=== PATIENT | male | born 1960 | race Caucasian/White ===

== ENCOUNTER 2016-10-07 17:09 | Inpatient (IN) | payer OTHER ==
[~2016-10-07] VITALS: Ht 182.9 cm; Wt 90.7 kg
[~2016-10-07 17:09] MED LIST: LACTATED RINGER'S 1000 ML INJ 2,000 ML IV ONE; ONDANSETRON HCL 4 MG/2 ML VIAL IV PUSH ONE; PROPOFOL 200 MG/20 ML AMP IV ONE
[2016-10-07 17:20] VITALS: BP 153/101; PULSE 85; RESP 20; TEMP 98.3; O2SAT 95
[2016-10-07] MEDS ORDERED: htn meds (17:26)
[2016-10-07] MEDS ORDERED: TETANUS/DIPHTHERIA TOXOID ADULT 0.5 ML VIAL IM ONE (17:30)
[2016-10-07] MEDS ORDERED: SODIUM CHLORIDE 0.9% FLUSH 5 ML FLUSH IVF PRN ×2 (17:30→21:45)
[2016-10-07] MEDS ORDERED: MORPHINE SULFATE 4 MG/ML INJ IV PUSH ONE (17:30)
[2016-10-07] MEDS ORDERED: ceFAZolin 2 GM PREMIX 50 ML IV ONE (17:30)
[2016-10-07] MEDS ORDERED: ONDANSETRON HCL 4 MG/2 ML VIAL IVP ONE (17:30)
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
[2016-10-07 17:46] VITALS: O2SAT 95
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
[2016-10-07 18:40] LABS: AUTOMATED NEUTROPHIL # 7.6 TH/MM3 (1.8-7.7); BASOPHIL # 0.1 TH/MM3 (0-0.2); BASOPHIL % 0.9 % (0.0-2.0); EOSINOPHIL # 0.2 TH/MM3 (0-0.4); EOSINOPHIL % 1.9 % (0.0-4.0); HEMATOCRIT 44.5 % (39.0-51.0); HEMO FLAGS DIFF FINAL; LYMPH % 24.4 % (9.0-44.0); LYMPHOCYTE # 2.8 TH/MM3 (1.0-4.8); MEAN CELL VOLUME 97.8 FL (80.0-100.0); MEAN CORPUSCULAR HEMOGLOBIN 32.7 PG (27.0-34.0); MEAN CORPUSCULAR HGB CONC 33.4 % (32.0-36.0); MONO % 7.1 % (0.0-8.0); NEUT % 65.7 % (16.0-70.0); PLATELET COUNT 182 TH/MM3 (150-450); RED BLOOD COUNT 4.55 MIL/MM3 (4.50-5.90); WHITE BLOOD COUNT 11.5 TH/MM3 (4.0-11.0)
[2016-10-07] MEDS ORDERED: HYDROmorphone HCL PF 1 MG/ML VIAL IV PUSH ONE (18:45)
[2016-10-07 18:50] LABS: APTT (PATIENT) 23.8 SEC (24.3-30.1); PROTHROMBIN TIME - PATIENT 10.6 SEC (9.8-11.6)
[2016-10-07 19:02] LABS: BICARBONATE 24.1 MEQ/L (21.0-32.0); POTASSIUM 3.9 MEQ/L (3.5-5.1)
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
[2016-10-07] MEDS ORDERED: SODIUM CHLOR 0.9% 1000 ML INJ 1,000 ML IV SCH (19:23)
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
[2016-10-07] MEDS ORDERED: ACETAMINOPHEN 325 MG TAB PO PRN (19:30)
[2016-10-07] MEDS ORDERED: SODIUM CHLORIDE 0.9% FLUSH 5 ML FLUSH FLUSH PRN (19:30)
[2016-10-07] MEDS ORDERED: ONDANSETRON HCL 4 MG/2 ML VIAL IVP PRN ×2 (19:30→21:45)
[2016-10-07] MEDS ORDERED: MORPHINE SULFATE 4 MG/ML INJ IV PRN (19:30)
[2016-10-07] MEDS ORDERED: BISACODYL 10 MG SUPP PR PRN (19:30)
[2016-10-07] MEDS ORDERED: ACETAMINOPHEN/HYDROcodone 325 MG/5 MG TAB PO PRN (19:30)
[2016-10-07] MEDS ORDERED: GENTAMICIN SULFATE 80 MG/2 ML VIAL ONE (19:37)
[2016-10-07 19:57] VITALS: BP 148/89
[2016-10-07] MEDS ORDERED: VANCOMYCIN HCL 1000 MG VIAL ONE (20:22)
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
[2016-10-07] MEDS ORDERED: VANCOMYCIN HCL 1000 MG VIAL OTHER ONE (20:29)
[2016-10-07] MEDS ORDERED: SODIUM CHLORIDE 0.9% FLUSH 5 ML FLUSH FLUSH SCH (21:00)
[2016-10-07] MEDS ORDERED: MISCELLANEOUS NURSING INFORMATION XX PRN (21:45)
[2016-10-07] MEDS ORDERED: diphenhydrAMINE HCL 25 MG CAP PO PRN (21:45)
[2016-10-07] MEDS ORDERED: MISCELLANEOUS PHARMACY INFORMATION XX ONE (21:45)
[2016-10-07] MEDS ORDERED: MAGNESIUM HYDROXIDE SUSP 30 ML CUP PO PRN (21:45)
[2016-10-07] MEDS ORDERED: NALOXONE HCL 0.4 MG/ML AMP IV PRN (21:45)
[2016-10-07] MEDS ORDERED: MORPHINE SULFATE 4 MG/ML INJ IV PUSH PRN (21:45)
[2016-10-07] MEDS ORDERED: Post-op Orders (for Pharmacy) MISC XX ONE (21:45)
[2016-10-07] MEDS ORDERED: ACETAMINOPHEN/HYDROcodone 325 MG/10 MG TAB PO PRN (21:45)
--- NOTE | 2016-10-07 21:45 | PD.OP ---
cc: Louis Addison MD Operative Report Date of Surgery: Oct 07, 2016 Preoperative Diagnosis: Left lower leg open tibia/fibular fracture. Postoperative Diagnosis: Left lower leg grade 2 open tibia/fibular fracture. Procedure: Left lower leg irrigation of skin through bone. Left lower leg treatment of open tibia fracture with intramedullary nail Implants: Synthes, tibial nail, 10 mm x 360 mm. Surgeon: Louis Addison Well Logging Captain Mud Analysis(s): ELKE Payton The surgical procedure was assisted by my Advanced Registered Nurse Practitioner. My GIS PROGRAMMER presence was necessary throughout this case for the manipulation and positioning of the surgical extremity. My GIS PROGRAMMER was assisting me throughout the duration of this procedure. The skill set of an Advance Registered Nurse Practitioner was medically necessary to complete this procedure. During the surgical case, the surgical instrument technician was working at the back table and the Advance Registered Nurse Practitioner was directly assisting me. Operation and Findings: Estimated blood loss: 250 cc. The patient was brought back to the operative theater. He received intravenous vancomycin and Ancef. After removing the splint we identified a 3 cm laceration in the posterior medial aspect of the leg which was complex in nature. This was consistent with an open fracture. No visualize gross contamination was noted. The left lower extremity was prepped and draped in the usual sterile fashion after general anesthesia had been administered. We started with debridement by extending the laceration proximal and distal. We debrided small areas of devitalized fat. There was small areas of devitalized muscle which were debrided as well. Skin was cleaned. We debrided the edge of the tibia. We then irrigated with 3 L of saline. We exchanged instruments and drapes. We then proceeded with the intramedullary nail. We made standard incision proximal to the patella and made in-line incision through the quadriceps tendon. We placed a protection sheath into the joint down to the proximal tibia is was kept in place the entire time to protect the patella. We used fluoroscopic imaging to obtain a good starting point and drilled proximally. A ball-tipped guidewire was placed down past the fracture to the ankle. We sequentially reamed up to a size 11. We placed the 10 mm nail into position. We reduced the fracture so that it was rotationally correct. The fracture did remained highly comminuted. We also made sure the patient did not have any excess valgus or varus. The nail was locked distally with 4 screws using perfect [place] technique. 2 of the screws had excellent purchase. 2 screws had good purchase. We gently back slapped the fracture to line up edges that appeared to be the most appropriate. The nail was secured proximally with 2 transverse screws proximally and one screw had excellent purchase, the other screw had good purchase. We took final fluoroscopic images. We thoroughly irrigated the arthrotomy site and then closed the quadriceps incision with 0 Vicryl interrupted. The remaining wounds were closed with 2-0 Vicryl and forest. We closed the traumatic wound with 2-0 Monocryl and 3-0 nylon. The leg was placed in a splint. Postoperative plan is nonweightbearing, 3 days of intravenous antibiotics for the open fracture, DVT prophylaxis with Lovenox for approximately 10 days followed by aspirin for 30 days. Louis Addison MD Oct 07, 2016 21:45
[2016-10-07] MEDS ORDERED: ASPI325T PO (21:47)
[2016-10-07] MEDS ORDERED: ENOX40P SQ (21:47)
[2016-10-07] MEDS ORDERED: HYDR-3366 PO (21:47)
--- NOTE | 2016-10-07 21:51 | EKG ---
Date Performed: 10/07/2016 Time Performed: 18:53:54 PTAGE: 56 years EKG: Sinus rhythm LEFT ANTERIOR FASCICULAR BLOCK ABNORMAL ECG NO PREVIOUS TRACING DOCTOR: Yoseph Cornejo Interpretating Date/Time 10/07/2016 21:48:57
--- NOTE | 2016-10-07 22:32 | RADRPT ---
EXAM DATE/TIME: 10/07/2016 21:24 [facility] COMPARISON: TIBIA/FIBULA LEFT (AP/LAT), October 07, 2016, 17:43. INDICATIONS : Open reduction. MEDICAL HISTORY : None. SURGICAL HISTORY : None. ENCOUNTER: Subsequent ACUITY: 1 day PAIN SCORE: Non-responsive. LOCATION: Left lateral FINDINGS: Multiple coned down views of the left tibia were obtained using a matrix camera and demonstrate place ment of intramedullary andrea transfixing the comminuted fracture of the distal tibia. The main fracture s are in near-anatomic alignment. There is a mildly comminuted fracture of the distal fibula. CONCLUSION: Status post open reduction internal fixation. Kain Ugalde MD on October 07, 2016 at 22:29 Board Certified Radiologist. This report was verified electronically.
[2016-10-07] MEDS ORDERED: fentaNYL CITRATE 250 MCG/5 ML AMP ONE (22:36)
[2016-10-07] MEDS ORDERED: MORPHINE SULFATE 4 MG/ML INJ ONE (22:37)
[2016-10-07] MEDS ORDERED: *morphine SULFATE 8 MG/ML PERIprocedure ONLY ONE ×2 (22:46→23:30)
[2016-10-07] MEDS ORDERED: *MEPERIDINE 25 MG INJ VIAL PERIprocedural Use ONLY ONE (22:47)
[2016-10-07] MEDS ORDERED: FAMOTIDINE 20 MG/2 ML VIAL ONE (22:51)
[2016-10-07 23:00] LABS: AUTOMATED NEUTROPHIL # 13.1 TH/MM3 (1.8-7.7); BASOPHIL # 0.1 TH/MM3 (0-0.2); BASOPHIL % 0.4 % (0.0-2.0); EOSINOPHIL # 0.1 TH/MM3 (0-0.4); EOSINOPHIL % 0.4 % (0.0-4.0); HEMATOCRIT 40.1 % (39.0-51.0); HEMO FLAGS DIFF FINAL; LYMPH % 9.3 % (9.0-44.0); LYMPHOCYTE # 1.4 TH/MM3 (1.0-4.8); MEAN CELL VOLUME 98.7 FL (80.0-100.0); MEAN CORPUSCULAR HEMOGLOBIN 33.2 PG (27.0-34.0); MEAN CORPUSCULAR HGB CONC 33.7 % (32.0-36.0); MONO % 3.8 % (0.0-8.0); NEUT % 86.1 % (16.0-70.0); PLATELET COUNT 182 TH/MM3 (150-450); RED BLOOD COUNT 4.07 MIL/MM3 (4.50-5.90); WHITE BLOOD COUNT 15.2 TH/MM3 (4.0-11.0)
[2016-10-07] MEDS: DEXT 5%-NACL 0.45% 1000 ML INJ 1,000 ML IV SCH (23:00)
[2016-10-07] MEDS ORDERED: ENALAPRILAT 1.25 MG/ML VIAL ONE (23:19)
[2016-10-08] VITALS (7 sets, daily range): BP systolic 140–167; BP diastolic 77–92; PULSE 61–76; RESP 16–20; TEMP 96–99.2; O2SAT 94–97
[2016-10-08] MEDS ORDERED: VENTAER INH (03:07)
[2016-10-08] MEDS ORDERED: LOSA25TA PO (03:09)
[2016-10-08] MEDS ORDERED: DILT30TA PO (03:09)
[2016-10-08] MEDS ORDERED: RESP: ALBUTEROL 2.5 MG/IPRATROPIUM 0.5 MG NEB (PRN) NEB (03:30)
[2016-10-08] MEDS: RESP: ALBUTEROL 2.5 MG/IPRATROPIUM 0.5 MG NEB (SCH) NEB ×4 (03:46→21:13)
[2016-10-08] MEDS: ACETAMINOPHEN/HYDROcodone 325 MG/10 MG TAB PO PRN ×3 (06:22→19:44)
[2016-10-08 07:32] LABS: AUTOMATED NEUTROPHIL # 13.1 TH/MM3 (1.8-7.7); BASOPHIL # 0.1 TH/MM3 (0-0.2); BASOPHIL % 0.4 % (0.0-2.0); EOSINOPHIL % 0.1 % (0.0-4.0); HEMATOCRIT 39.5 % (39.0-51.0); HEMO FLAGS DIFF FINAL; LYMPH % 7.6 % (9.0-44.0); LYMPHOCYTE # 1.2 TH/MM3 (1.0-4.8); MEAN CELL VOLUME 97.1 FL (80.0-100.0); MEAN CORPUSCULAR HEMOGLOBIN 33.2 PG (27.0-34.0); MEAN CORPUSCULAR HGB CONC 34.2 % (32.0-36.0); NEUT % 85.9 % (16.0-70.0); PLATELET COUNT 178 TH/MM3 (150-450); RED BLOOD COUNT 4.07 MIL/MM3 (4.50-5.90); RED CELL DISTRIBUTION WIDTH 13.1 % (11.6-17.2); WHITE BLOOD COUNT 15.3 TH/MM3 (4.0-11.0)
[2016-10-08 07:59] LABS: ALKALINE PHOSPHATASE 52 U/L (45-117); ALT (GPT) 31 U/L (12-78); ANION GAP 8 MEQ/L (5-15); AST (GOT) 41 U/L (15-37); BICARBONATE 26.1 MEQ/L (21.0-32.0); BLOOD UREA NITROGEN 15 MG/DL (7-18); CHLORIDE 101 MEQ/L (98-107); GLOMERULAR FILTRATION RATE 70 ML/MIN (>89); POTASSIUM 4.4 MEQ/L (3.5-5.1); SODIUM (NA) 135 MEQ/L (136-145); TOTAL BILIRUBIN ADULT 0.5 MG/DL (0.2-1.0)
--- NOTE | 2016-10-08 08:22 | PD.ORT.PN ---
Subjective Subjective Remarks No complaints. Pain fairly well controlled. No new injuries Objective Vitals Vital Signs Date Time Temp Pulse Resp B/P Pulse Ox O2 Delivery O2 Flow Rate FiO2 10/08/16 04:00 98.3 74 16 162/89 96 10/08/16 00:18 96.6 61 16 155/92 97 10/08/16 00:00 97.8 67 12 155/95 98 Nasal Cannula 4 10/07/16 23:45 70 12 151/86 97 Nasal Cannula 4 10/07/16 23:30 98.2 62 12 161/94 99 Nasal Cannula 4 10/07/16 23:15 69 11 163/94 97 Nasal Cannula 4 10/07/16 23:00 74 12 164/102 96 Nasal Cannula 4 10/07/16 22:45 71 12 156/101 99 Nasal Cannula 4 10/07/16 22:30 73 12 158/116 98 Simple Mask 10 10/07/16 22:19 98.0 85 10 158/103 90 Simple Mask 10 10/07/16 19:57 74 148/89 96 10/07/16 17:46 95 10/07/16 17:20 98.3 85 20 153/101 95 I/O 10/07/16 10/07/16 10/07/16 10/08/16 10/08/16 10/08/16 07:00 15:00 23:00 07:00 15:00 23:00 Intake Total 1200 ml 990 ml Output Total 50 ml 700 ml Balance 1150 ml 290 ml Intake Oral 540 ml IV Total 450 ml Other 1200 ml Output Urine Total 700 ml Estimated Blood Loss 50 ml Other 0 ml Result Diagram: 10/08/16 0650 10/08/16 0650 Other Results Laboratory Tests Test 10/07/16 17:10 Prothrombin Time 10.6 SEC (9.8-11.6) Prothromb Time International 1.0 RATIO Ratio Imaging Last 24 hours Impressions Tibia/Fibula X-Ray 10/07/161726 Signed Impressions: Service Date/Time: Friday, October 07, 2016 17:43 - CONCLUSION: Comminuted distal tibial and fibular fractures. Navi Hancock MD Ankle X-Ray 10/07/161726 Signed Impressions: Service Date/Time: Friday, October 07, 2016 17:43 - CONCLUSION: Distal tibia and fibular fractures. Navi Hancock MD Chest X-Ray 10/07/16 1724 Signed Impressions: Service Date/Time: Friday, October 07, 2016 17:50 - CONCLUSION: No acute disease. Nelson Sheets MD Objective Remarks Laboratory stable. X-rays reviewed and look satisfactory. Sensation normal. Mild swelling. Splint intact Assessment & Plan Ortho Post Op Day #: 1 Problem List: Assessment and Plan Open left tibia fracture. Status post ORIF, IM andrea: POD #1. PLAN: Nonweightbearing Lovenox IV antibiotics for 3 days Probable discharge on Monday, after antibiotic are finished No dressing change Vin Huitron MD Oct 08, 2016 08:22
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
[2016-10-08] MEDS ORDERED: MULTIVITAMINS/MINERALS THERAPEUTIC TAB PO SCH (09:00)
[2016-10-08] MEDS ORDERED: WALKER WHEELS/F1 MIS (09:14)
[2016-10-08] MEDS ORDERED: CRUTMIS25 (09:14)
[2016-10-08] MEDS ORDERED: COMMODE 3-IN-11 MIS (09:14)
[2016-10-08] MEDS: DILTIAZEM HCL 30 MG TAB PO SCH (11:34)
[2016-10-08] MEDS: LOSARTAN 25 MG TAB PO SCH (11:34)
[2016-10-08] MEDS: MULTIVITAMIN TAB PO SCH (11:34)
[2016-10-08] MEDS: DOCUSATE SODIUM 50 MG/SENNA 8.6 MG TAB PO SCH ×2 (11:34→21:03)
[2016-10-08] MEDS: DEXT 5%-NACL 0.45% 1000 ML INJ 1,000 ML IV SCH ×2 (11:35→21:04)
[2016-10-08] MEDS: SODIUM CHLORIDE 0.9% FLUSH 5 ML FLUSH IVF SCH ×2 (11:36→21:00)
[2016-10-08] MEDS: NICOTINE 21 MG/24 HR PATCH TD SCH ×2 (16:00→17:05)
[2016-10-08] MEDS: ENOXAPARIN SODIUM 40 MG/0.4 ML SYRINGE SQ SCH (21:02)
[2016-10-09] VITALS: BP 149/87; PULSE 78; RESP 16; TEMP 98.9; O2SAT 96
[2016-10-09] MEDS: ACETAMINOPHEN/HYDROcodone 325 MG/10 MG TAB PO PRN ×3 (02:02→16:50)
[2016-10-09] MEDS: RESP: ALBUTEROL 2.5 MG/IPRATROPIUM 0.5 MG NEB (SCH) NEB ×2 (04:00→21:22)
[2016-10-09] MEDS: DEXT 5%-NACL 0.45% 1000 ML INJ 1,000 ML IV SCH (05:23)
[2016-10-09 06:48] LABS: AUTOMATED NEUTROPHIL # 7.1 TH/MM3 (1.8-7.7); BASOPHIL % 0.4 % (0.0-2.0); EOSINOPHIL # 0.1 TH/MM3 (0-0.4); EOSINOPHIL % 0.8 % (0.0-4.0); HEMATOCRIT 36.4 % (39.0-51.0); HEMO FLAGS DIFF FINAL; LYMPHOCYTE # 2.8 TH/MM3 (1.0-4.8); MEAN CELL VOLUME 96.6 FL (80.0-100.0); MEAN CORPUSCULAR HEMOGLOBIN 33.3 PG (27.0-34.0); MEAN CORPUSCULAR HGB CONC 34.5 % (32.0-36.0); NEUT % 64.8 % (16.0-70.0); PLATELET COUNT 167 TH/MM3 (150-450); RED BLOOD COUNT 3.77 MIL/MM3 (4.50-5.90); RED CELL DISTRIBUTION WIDTH 13.1 % (11.6-17.2)
[2016-10-09 07:03] LABS: BICARBONATE 28.5 MEQ/L (21.0-32.0); POTASSIUM 3.8 MEQ/L (3.5-5.1)
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
[2016-10-09] MEDS: DILTIAZEM HCL 30 MG TAB PO SCH (07:43)
[2016-10-09] MEDS: LOSARTAN 25 MG TAB PO SCH (07:44)
[2016-10-09] MEDS: DOCUSATE SODIUM 50 MG/SENNA 8.6 MG TAB PO SCH ×2 (07:44→20:14)
[2016-10-09] MEDS: MULTIVITAMIN TAB PO SCH (07:51)
[2016-10-09] MEDS: NICOTINE 21 MG/24 HR PATCH TD SCH (07:52)
[2016-10-09 08:00] VITALS: BP 148/81; PULSE 82; RESP 16; TEMP 96; O2SAT 96
[2016-10-09] MEDS: SODIUM CHLORIDE 0.9% FLUSH 5 ML FLUSH IVF SCH ×2 (09:00→20:14)
[2016-10-09] MEDS: REMOVE OLD PATCH TD SCH (09:00)
--- NOTE | 2016-10-09 09:10 | PD.ORT.PN ---
Subjective Subjective Remarks patient sitting up in chair post op pain ready to be discharged but has to await completion of antibiotics due to open fracture Objective Vitals Vital Signs Date Time Temp Pulse Resp B/P Pulse Ox O2 Delivery O2 Flow Rate FiO2 10/09/16 00:00 98.9 78 16 149/87 96 10/08/16 20:01 99.2 76 20 167/89 95 10/08/16 20:00 95 Room Air 10/08/16 16:00 98.6 75 18 146/77 94 10/08/16 15:44 97 21 10/08/16 12:00 99.1 74 18 149/87 97 I/O 10/08/16 10/08/16 10/08/16 10/09/16 10/09/16 10/09/16 07:00 15:00 23:00 07:00 15:00 23:00 Intake Total 1778 ml 960 ml 1294 ml 1229 ml Output Total 700 ml 1800 ml 800 ml 800 ml Balance 1078 ml -840 ml 494 ml 429 ml Intake Oral 540 ml 960 ml 600 ml 480 ml IV Total 1238 ml 694 ml 749 ml Output Urine Total 700 ml 1800 ml 800 ml 800 ml # Bowel Movements 0 Result Diagram: 10/09/16 0554 10/09/16 0554 Imaging Last 24 hours Impressions Tibia/Fibula X-Ray 10/07/161726 Signed Impressions: Service Date/Time: Friday, October 07, 2016 17:43 - CONCLUSION: Comminuted distal tibial and fibular fractures. Navi Hancock MD Ankle X-Ray 10/07/161726 Signed Impressions: Service Date/Time: Friday, October 07, 2016 17:43 - CONCLUSION: Distal tibia and fibular fractures. Navi Hancock MD Chest X-Ray 10/07/161723 Signed Impressions: Service Date/Time: Friday, October 07, 2016 17:50 - CONCLUSION: No acute disease. Nelson Sheets MD Objective Remarks seen by Dr. Vin Huitron sitting up in chair left lower extremity splint in place +NVI +sensation Assessment & Plan Assessment and Plan Open left tibia fracture. Status post ORIF, IM andrea: POD #2 PLAN: Nonweightbearing Lovenox IV antibiotics for 3 days Probable discharge on Monday, after antibiotic are finished No dressing change - patient will be provided disc of x-rays and was advised needs follow up care by orthopedic surgeon in [facility], [place] Carlene Romano Oct 09, 2016 09:10
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
[2016-10-09 09:33] VITALS: O2SAT 93
[2016-10-09] MEDS ORDERED: INFLUENZA VIRUS VACCINE (QUADRIVALENT) 0.5 ML SYR IM ONE (10:00)
[2016-10-09 12:00] VITALS: BP 158/97; PULSE 88; RESP 16; TEMP 98; O2SAT 95
[2016-10-09] MEDS ORDERED: cefTRIAXone INJ 1,000 MG in SODIUM CHLORIDE 0.9% INJ 100 ML IV SCH (12:00)
[2016-10-09 15:30] VITALS: BP 173/98; PULSE 89; RESP 16; TEMP 99.1; O2SAT 95
[2016-10-09] MEDS: ENOXAPARIN SODIUM 40 MG/0.4 ML SYRINGE SQ SCH (20:14)
[2016-10-09 23:10] VITALS: BP 175/91; PULSE 88; RESP 22; TEMP 97.7; O2SAT 92
[2016-10-10] MEDS: ACETAMINOPHEN/HYDROcodone 325 MG/10 MG TAB PO PRN ×3 (00:45→13:28)
[2016-10-10 01:10] VITALS: BP 168/87; PULSE 86; RESP 22; TEMP 98.1; O2SAT 94
[2016-10-10] MEDS: RESP: ALBUTEROL 2.5 MG/IPRATROPIUM 0.5 MG NEB (SCH) NEB (03:19)
[2016-10-10 04:54] LABS: MEAN CELL VOLUME 95.9 FL (80.0-100.0); MEAN CORPUSCULAR HEMOGLOBIN 34.2 PG (27.0-34.0); MEAN CORPUSCULAR HGB CONC 35.7 % (32.0-36.0); PLATELET COUNT 190 TH/MM3 (150-450); RED BLOOD COUNT 3.97 MIL/MM3 (4.50-5.90); RED CELL DISTRIBUTION WIDTH 12.8 % (11.6-17.2); WHITE BLOOD COUNT 10.9 TH/MM3 (4.0-11.0)
[2016-10-10 05:18] LABS: HEMO FLAGS AUTO DIFF
[2016-10-10 05:52] LABS: BICARBONATE 28.5 MEQ/L (21.0-32.0); POTASSIUM 3.7 MEQ/L (3.5-5.1)
[2016-10-10 06:42] LABS: BANDS 7 % (0-6); NEUTROPHIL # MANUAL DIFF 7.6 TH/MM3 (1.8-7.7); POLYS (SEG NEUTROPHILS) 63 % (16-70); WBC DIFF SAMPLE 100
[2016-10-10 06:43] LABS: PLATELET ESTIMATE SMEAR NORMAL (NORMAL); PLATELET MORPHOLOGY NORMAL (NORMAL); SCAN/DIFF FINAL DIFF MANUAL
[2016-10-10] MEDS: MULTIVITAMIN TAB PO SCH (07:49)
[2016-10-10] MEDS: LOSARTAN 25 MG TAB PO SCH (07:49)
[2016-10-10] MEDS: DOCUSATE SODIUM 50 MG/SENNA 8.6 MG TAB PO SCH (07:49)
[2016-10-10] MEDS: DILTIAZEM HCL 30 MG TAB PO SCH (07:49)
[2016-10-10] MEDS: NICOTINE 21 MG/24 HR PATCH TD SCH (07:50)
[2016-10-10] MEDS: REMOVE OLD PATCH TD SCH (07:50)
[2016-10-10] MEDS: SODIUM CHLORIDE 0.9% FLUSH 5 ML FLUSH IVF SCH (07:50)
[2016-10-10 08:00] VITALS: BP 142/91; PULSE 92; RESP 18; TEMP 97.4; O2SAT 93
--- NOTE | 2016-10-10 11:34 | PD.ORT.PN ---
Subjective Post Op Day #: 3 Subjective Remarks Patient is OOB in chair with minimal pain to the left LE. Patient is anxious for discharge home to [place]. Objective Vitals Vital Signs Date Time Temp Pulse Resp B/P Pulse Ox O2 Delivery O2 Flow Rate FiO2 10/10/16 08:00 97.4 92 18 142/91 93 10/10/16 07:45 Room Air 10/10/16 01:10 98.1 86 22 168/87 94 10/09/16 23:10 97.7 88 22 175/91 92 10/09/16 20:00 92 Room Air 10/09/16 15:30 99.1 89 16 173/98 95 10/09/16 12:00 98.0 88 16 158/97 95 I/O 10/09/16 10/09/16 10/09/16 10/10/16 10/10/16 10/10/16 07:00 15:00 23:00 07:00 15:00 23:00 Intake Total 1229 ml 600 ml 660 ml Output Total 800 ml 650 ml 700 ml 1350 ml Balance 429 ml -650 ml -100 ml -690 ml Intake Oral 480 ml 600 ml 660 ml IV Total 749 ml Output Urine Total 800 ml 650 ml 700 ml 1350 ml # Voids 4 # Bowel Movements 0 0 Result Diagram: 10/10/1634610/10/16346 Imaging Last 24 hours Impressions Tibia/Fibula X-Ray 10/07/161726 Signed Impressions: Service Date/Time: Friday, October 07, 2016 17:43 - CONCLUSION: Comminuted distal tibial and fibular fractures. Navi Hancock MD Ankle X-Ray 10/07/161726 Signed Impressions: Service Date/Time: Friday, October 07, 2016 17:43 - CONCLUSION: Distal tibia and fibular fractures. Navi Hancock MD Chest X-Ray 10/07/161723 Signed Impressions: Service Date/Time: Friday, October 07, 2016 17:50 - CONCLUSION: No acute disease. Nelson Sheets MD Procedures Open left tibia fracture. Status post ORIF, IM andrea: POD #2 Objective Remarks sitting up in chair left lower extremity splint in place +NVI +sensation BCR X 5 Dressing to thight is C/D/I. Maintain. Assessment & Plan Ortho Post Op Day #: 3 Problem List: Assessment and Plan Open left tibia fracture. Status post ORIF, IM andrea: POD #3 PLAN: Nonweightbearing Lovenox changed to Xarelto for DVT prophylaxis IV antibiotics for 3 days Stable for discharge per ortho today, after antibiotic are finished No dressing change - patient will be provided disc of x-rays and was advised needs follow up care by orthopedic surgeon in [facility], [place] Sammy Cornejo Oct 10, 2016 11:34
[2016-10-10] MEDS ORDERED: XARE10TA PO (11:37)
[2016-10-10 12:00] VITALS: BP 151/85; PULSE 83; RESP 18; TEMP 99.4; O2SAT 96
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
== END 2016-10-10 14:36 | disposition home or self-care (01) | DRG 492 ==
LOC: NEPE 17:09 → NEDA 19:22 → N06B 10-08 00:13
PROVIDERS: ADMIT Hospitalist; ATTEND Hospitalist
PROC: 0QSH06Z Reposition Left Tibia with Intramedullary Internal Fixation Device, Open Approach (ICD-10-PCS; principal; 2016-10-07 20:07)
DX: S82.392B Other fracture of lower end of left tibia, initial encounter for open fracture type I or II (principal); S82.832B Other fracture of upper and lower end of left fibula, initial encounter for open fracture type I or II; I10 Essential (primary) hypertension; E86.0 Dehydration; S50.812A Abrasion of left forearm, initial encounter; S50.811A Abrasion of right forearm, initial encounter; S50.312A Abrasion of left elbow, initial encounter; S50.311A Abrasion of right elbow, initial encounter; V28.0XXA Motorcycle driver injured in noncollision transport accident in nontraffic accident, initial encounter; Y92.410 Unspecified street and highway as the place of occurrence of the external cause; F17.210 Nicotine dependence, cigarettes, uncomplicated
CPT/HCPCS: 71010; 73590; 73600; 76000; 80048; 80053; 85007; 85025; 85027; 85610; 85730; 86850; 86900; 86901; 90471; 90714; 93005; 94150; 94640; 94664; 96374; 96375; C1713; J0690; J1170; J1580; J1650; J2175; J2270; J2405; J3010; J3370; J7120